=== PATIENT | male | born 1990 | race Two or more races ===

== ENCOUNTER 2019-01-24 10:51 | Emergency (ER) | payer OTHER ==
[~2019-01-24] VITALS: Ht 175.3 cm; Wt 120.2 kg
[2019-01-24 10:58] VITALS: BP 161/92
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
[2019-01-24] MEDS ORDERED: CYCL5TAB PO (11:30)
== END 2019-01-24 11:43 | disposition home or self-care (01) ==
LOC: ER 10:51
DX: S16.1XXA Strain of muscle, fascia and tendon at neck level, initial encounter (principal); S29.012A Strain of muscle and tendon of back wall of thorax, initial encounter; V53.5XXA Driver of pick-up truck or van injured in collision with car, pick-up truck or van in traffic accident, initial encounter; Y93.I9 Activity, other involving external motion; Y92.488 Other paved roadways as the place of occurrence of the external cause; Y99.8 Other external cause status
CPT/HCPCS: 99283